=== PATIENT | male | born 1935 | race Hispanic/Latino ===

== ENCOUNTER 2022-01-10 22:03 | Emergency (ER) | payer OTHER ==
[2022-01-10] MEDS ORDERED: ALTEPLASE 100 MG VIAL IVP ONE (22:04)
[2022-01-10] MEDS ORDERED: LABETALOL 20MG SYG IV ONE (22:04)
[2022-01-10 22:39] LABS: CREATININE 1.3 mg/dL (0.5-1.5); POTASSIUM 4.4 mmol/L (3.5-5.1)
[2022-01-10 22:43] LABS: ALBUMIN 3.8 g/dL (3.5-5.0); BILIRUBIN,TOTAL 0.6 mg/dL (0.2-1.0); INR 1.12 (0.85-1.15); PROTHROMBIN TIME 12.1 SEC (9.6-11.6); TOTAL PROTEIN, SERUM 7.4 g/dL (6.0-8.3)
[2022-01-10 22:50] LABS: BASOPHILS % (AUTO) 0.7 % (0.0-5.0); EOSINOPHILS % (AUTO) 2.4 % (0.0-8.0); HEMATOCRIT 38.9 % (42-54); LYMPHOCYTES % (AUTO) 10.9 % (21.0-51.0); MEAN CORPUSCULAR HEMOGLOBIN 27.3 pg (27.0-33.0); MEAN CORPUSCULAR HGB CONC 31.4 g/dL (32.0-36.0); MONOCYTES % (AUTO) 6.3 % (3.0-13.0); PLATELET COUNT (AUTO) 155 K/uL (130-400); RED BLOOD CELL COUNT(AUTO) 4.47 MIL/uL (4.50-6.20); RED CELL DISTRIBUTION WIDTH 15.1 % (11.0-15.5); WHITE BLOOD COUNT (AUTO) 7.5 K/uL (4.8-10.8)
[2022-01-10 23:19] LABS: APPEARANCE,URINE CLEAR (CLEAR); BILIRUBIN,URINE NEGATIVE (NEGATIVE); COLOR,URINE STRAW (YELLOW); GLUCOSE, URINE (UA) NEGATIVE (NEGATIVE); KETONES,URINE 5 mg/dL (NEGATIVE); LEUKOCYTE ESTERASE ,URINE NEGATIVE (NEGATIVE); NITRATE,URINE NEGATIVE (NEGATIVE); OCCULT BLOOD,URINE SMALL (NEGATIVE); PH,URINE 6.5 (5.0-8.0); PROTEIN,URINE 30 mg/dL (NEGATIVE); UROBILINOGEN,URINE 0.2 mg/dL (0.2-1.0)
[2022-01-10 23:28] LABS: BACTERIA,URINE None Seen /HPF (None Seen); SQUAMOUS EPITHELIAL CELL,UR Rare /HPF (0-2); WBC,URINE None Seen /HPF (0-1)
[2022-01-10] MEDS ORDERED: IOHEXOL 350 MG/ML 100ML INFUS..BTL IV ONE (23:51)
[2022-01-11] MEDS ORDERED: SOLU-MEDROL 125MG VIAL ONE (00:12)
[2022-01-11] MEDS ORDERED: DiphenhydrAMINE HCL 50 MG/ML VIAL ONE (00:12)
[2022-01-11] MEDS ORDERED: RACEPINEPHRINE HCL 2.25% 0.5 ML NEB SOLN ONE ×2 (00:13→00:30)
[2022-01-11] MEDS ORDERED: KETAMINE HCL 100 MG/ML 5ML VIAL IJ ONE (00:39)
[2022-01-11] MEDS ORDERED: MIDAZOLAM HCL 5 MG/ML 2ML VIAL IV ONE ×2 (00:39→01:00)
[2022-01-11] MEDS ORDERED: GLYCOPYRROLATE 1 MG/5 ML SYRINGE ONE (00:41)
[2022-01-11] MEDS ORDERED: PROPOFOL 1000 MG/100 ML 100 ML IV ONE (00:52)
[2022-01-11] MEDS ORDERED: NOREPINEPHRIN 4MG/NS 250ML 250 ML IV ONE (01:11)
[2022-01-11] MEDS ORDERED: IOHEXOL 350 MG/ML 100ML INFUS..BTL IV ONE ×2 (02:28→02:45)
[2022-01-11 04:17] VITALS: BP 126/59
== END 2022-01-11 05:40 | disposition home or self-care (01) ==
LOC: EDH 22:03
DX: T78.3XXA Angioneurotic edema, initial encounter (principal); I63.511 Cerebral infarction due to unspecified occlusion or stenosis of right middle cerebral artery; G81.94 Hemiplegia, unspecified affecting left nondominant side; I63.9 Cerebral infarction, unspecified; I48.91 Unspecified atrial fibrillation; M19.90 Unspecified osteoarthritis, unspecified site; E11.9 Type 2 diabetes mellitus without complications
CPT/HCPCS: 36415; 70450; 70496; 70498; 71045; 80053; 81001; 82550; 82948; 85025; 85610; 85730; 93005; 96374; 96375; 99291; 99292; J1200; J2250; J2704; J2930; J2997; J3490 ×3; Q9967 ×2